=== PATIENT | male | born 1990 | race American Indian/Alaskan Native ===

== ENCOUNTER 2021-08-06 00:42 | Emergency (ER) | payer SELFPAY ==
[2021-08-06 00:48] VITALS: BP 128/80; PULSE 78
== END 2021-08-06 05:00 | disposition home or self-care (01) ==
LOC: JD.ED 00:42
DX: F41.0 Panic disorder [episodic paroxysmal anxiety] (principal); Z88.0 Allergy status to penicillin; Z88.2 Allergy status to sulfonamides; Z72.0 Tobacco use
CPT/HCPCS: 36415; 71046; 71046-26; 80053; 83735; 83880; 84484; 85025; 85379; 93005; 99284-25